=== PATIENT | female | born 1990 | race Hispanic/Latino ===

== ENCOUNTER 2018-02-04 14:31 | Emergency (ER) | payer OTHER, SELFPAY ==
[2018-02-04] MEDS ORDERED: Nitrazine Tape 1 ROLL ONE (14:46)
[2018-02-04 15:08] LABS: #Monocytes 0.3 thou/uL (0.11-0.59); #Neutrophils 5.8 thou/uL (1.40-6.50); %Basophils 0.1 % (0.0-1.0); %Eosinophils 0.7 % (0.0-10.0); %Lymphocytes 13.7 % (21.0-51.0); %Monocytes 3.7 % (0.0-10.0); %Neutrophils 81.9 % (42.0-75.0); Hemoglobin 8.7 g/dL (12.0-16.0); Mean Corpuscular HGB CONC 33.8 g/dL (32.0-36.0); Mean Corpuscular Hemoglobin 28.1 pg (27.0-31.0); Mean Corpuscular Volume 83.3 fl (81.0-99.0); Mean Platelet Volume 7.8 fL (7.4-10.4); Platelet Count 257 thou/uL (130-400); Red Blood Cell (RBC) Count 3.07 mill/uL (4.20-5.40); White Blood Cell (WBC) Count 7.1 thou/uL (4.8-10.8)
[2018-02-04 15:13] LABS: Bilirubin Negative (Negative); Blood, Urine Trace (Negative); Clarity CLEAR (Clear); Glucose, Urine (Dipstick) Negative (Negative); Leukocyte Negative (Negative); Nitrite Negative (Negative); Protein, Urine (Dipstick) Negative (Neg-Trace); Specific Gravity, Urine 1.009 (1.002-1.036); Urobilinogen 0.2 mg/dL (0.2-1.0)
[2018-02-04 15:15] LABS: Bacteria/HPF None Seen HPF (None Seen); Hyaline Casts/LPF 0-3 HYALINE CAST LPF (0-3 Hyaline); Pathc Cast-AUWi Flag 0.14 (0-2.49); RBC/HPF 0-3 HPF (0-3); Squamous Epithelial 0-3 HPF (0-3); WBC/HPF 0-3 HPF (0-3)
[2018-02-04 15:24] LABS: Renal Epithelial None Seen HPF (0-3); Transitional Epithelial NONE SEEN HPF (0-3)
[2018-02-04 15:31] LABS: ALT (SGPT) 42 U/L (8-55); AST (SGOT) 50 U/L (5-34); Albumin 3.7 g/dL (3.5-5.0); Alkaline Phosphatase 241 U/L (40-150); Anion Gap 14 mmol/L (10-20); BUN (Urea Nitrogen) 7 mg/dL (7.0-18.7); Bilirubin, Total 1.3 mg/dL (0.2-1.2); Calc. Creatinine Clearance 0 mL/min (70-130); Calcium 9.1 mg/dL (7.8-10.44); Carbon Dioxide 22 mmol/L (22-29); Chloride 106 mmol/L (98-107); Estimated GFR-MDRD Greater than 90; Globulin 3.5 g/dL (2.4-3.5); Glucose 90 mg/dL (70-105); Potassium 3.8 mmol/L (3.5-5.1); Protein, Total 7.2 g/dL (6.0-8.3); Sodium 138 mmol/L (136-145)
== END 2018-02-04 18:05 | disposition home or self-care (01) ==
LOC: ERS 14:31
DX: O99.63 Diseases of the digestive system complicating the puerperium (principal); K59.00 Constipation, unspecified; O90.81 Anemia of the puerperium; O99.89 Other specified diseases and conditions complicating pregnancy, childbirth and the puerperium; R79.89 Other specified abnormal findings of blood chemistry; Z79.899 Other long term (current) drug therapy; Z79.1 Long term (current) use of non-steroidal anti-inflammatories (NSAID); Z79.891 Long term (current) use of opiate analgesic
CPT/HCPCS: 80053; 81003; 81015; 85025; 93005

== ENCOUNTER 2021-08-13 23:06 | Emergency (ER) | payer OTHER ==
[2021-08-14] MEDS ORDERED: Ketorolac Tromethamine 30 MG/ML VIAL ONE (02:17)
== END 2021-08-14 03:02 | disposition home or self-care (01) ==
LOC: ERS 23:06
DX: R07.89 Other chest pain (principal); V49.40XA Driver injured in collision with unspecified motor vehicles in traffic accident, initial encounter; E03.9 Hypothyroidism, unspecified
CPT/HCPCS: 71045; 96372; J1885